=== PATIENT | male | born 1990 | race Hispanic/Latino ===

== ENCOUNTER 2017-11-08 12:13 | Emergency (ER) | payer BC ==
[~2017-11-08] VITALS: Ht 177.8 cm; Wt 117.6 kg
[~2017-11-08 12:13] MED LIST: AMOXICILLIN500 MG PO; FIORICET 50-301 EACH PO; FLEXERIL10 MG PO; FLONASE16 G1 BOTH NARES; MOBIC7.5 MG PO; NAPROSYN500 MG PO
[2017-11-08] MEDS ORDERED: PEN-VEE K,VEET500 MG PO (17:02)
[2017-11-08] MEDS ORDERED: XYLOCAINE VISC100 ML PO (17:02)
[2017-11-08 17:19] VITALS: BP 134/61
== END 2017-11-08 17:25 | disposition home or self-care (01) ==
LOC: EME 12:13
DX: J02.0 Streptococcal pharyngitis (principal)
CPT/HCPCS: 87502; 87651 90; 99281; 99285; J0780; J1885; J7030